=== PATIENT | male | born 1950 | race Asian ===

== ENCOUNTER 2017-06-16 06:29 | Emergency (ER) | payer OTHER ==
[~2017-06-16] VITALS: Ht 177.8 cm; Wt 74.8 kg
[2017-06-16 06:33] VITALS: BP_SYST 196
--- NOTE | 2017-06-16 06:40 | NUR ---
Patient to ER bed 6 to gown for evaluation. Side rails up. Report given to Polly COSBY.
--- NOTE | 2017-06-16 06:45 | NUR ---
Pt woke up this morning c/o L sided head pressure and tingling. Pt also experiencing dizziness and nauseated, no vomit. Denies SOB, fever/chills. Respirations even and unlabored. No acute distress noted. Will continue to monitor.
--- NOTE | 2017-06-16 06:48 | NUR ---
ER Dr. Sawyer at bedside examining patient.
[2017-06-16] MEDS ORDERED: hydrALAZINE HCL 20 MG/ML VIAL IVP ONE (07:00)
[2017-06-16] MEDS ORDERED: ENALAPRILAT DIHYDRATE 1.25 MG/ML VIAL IVP ONE (07:00)
[2017-06-16 07:05] LABS: BASOPHILS % (AUTO) 0.3 % (0.0-2.0); EOSINOPHILS % (AUTO) 0.7 % (0.0-4.0); HEMATOCRIT 48.5 % (36-54); HEMOGLOBIN 16.1 g/dL (14.0-18.0); LYMPHOCYTES # (AUTO) 1.1 K/uL (1.0-5.5); LYMPHOCYTES % (AUTO) 16.3 % (20.5-51.5); MEAN CORPUSCULAR HEMOGLOBIN 30 pg (27-31); MEAN CORPUSCULAR HGB CONC 33 % (32-36); MEAN CORPUSCULAR VOLUME 90 fL (79.0-98.0); MONOCYTES # (AUTO) 0.4 K/uL (0.0-1.0); MONOCYTES % (AUTO) 5.4 % (1.7-9.3); NEUTROPHILS # (AUTO) 5.2 K/uL (1.8-7.7); NEUTROPHILS % (AUTO) 77.3 % (40.0-70.0); PLATELET COUNT (AUTO) 163 K/uL (130-430); RED BLOOD CELL COUNT(AUTO) 5.39 MIL/uL (4.2-6.2); RED CELL DISTRIBUTION WIDTH 12.1 % (9.0-15.0); WHITE BLOOD COUNT (AUTO) 6.7 K/uL (4.8-10.8)
--- NOTE | 2017-06-16 07:09 | NUR ---
Elevated BP BP 197/90, apresoline administered.
[2017-06-16 07:15] LABS: CALCIUM 8.8 mg/dL (8.4-11.0); CREATININE 1.01 mg/dL (0.55-1.30); POTASSIUM 3.3 mmol/L (3.5-5.1)
--- NOTE | 2017-06-16 07:20 | NUR ---
Bp 169/91. Enalapril administered.
[2017-06-16 07:23] LABS: ALBUMIN 4.1 g/dL (3.4-4.8); TOTAL BILIRUBIN 1.3 mg/dL (0.0-1.0)
--- NOTE | 2017-06-16 07:35 | NUR ---
Patient transported to radiology via gurney, accompanied by rad staff.
[2017-06-16] MEDS ORDERED: ONDANSETRON HCL 4 MG/2 ML VIAL IVP ONE (07:45)
--- NOTE | 2017-06-16 07:48 | NUR ---
Returned from radiology, back to [facility].
[2017-06-16] MEDS ORDERED: POTASSIUM CHLORIDE 10 MEQ TAB.PRT.SR PO ONE (08:00)
--- NOTE | 2017-06-16 08:00 | NUR ---
Pt medicated for nausea and mild hypokalemia. Pt has no acute distress noted at this time.
[2017-06-16 08:50] VITALS: BP_SYST 146
--- NOTE | 2017-06-16 08:50 | NUR ---
Patient given written and verbal discharge instructions and verbalizes understanding. ER MD discussed with patient the results and treatment provided. Patient in stable condition. ID arm band removed. IV catheter removed intact and dressing applied, no active bleeding. Rx of zofran,lisinopril given. Patient educated on pain management and to follow up with PMD. Pain Scale 0. Opportunity for questions provided and answered.
== END 2017-06-16 08:50 | disposition home or self-care (01) ==
LOC: SED 06:29
DX: I10 Essential (primary) hypertension (principal)
CPT/HCPCS: 36415; 70450; 80053; 80061; 84484; 85025; 93005; 96374; 96375; 99285; J0360; J2405